=== PATIENT | male | born 1960 | race Caucasian/White ===

== ENCOUNTER → 2020-10-07 13:37 | Outpatient (CLI) | payer OTHER, SELFPAY ==
--- NOTE | 2020-10-07 | DI.RAD.S_ITS ---
PROCEDURE: XR CHEST 2V INDICATIONS: pain TECHNIQUE: 2 views of the chest were acquired. COMPARISON: [facility], , CHEST 2 VIEW, 12/19/2006, 17:09. FINDINGS: Surgical changes and devices: None. Lungs and pleura: Lungs are mildly abnormal, with a mild alveolar edema pattern through the lower lungs. However, this is in the setting of relatively large body habitus and reduced inspiration. Atelectasis may explain this appearance rather than pneumonia.. No pleural effusions or pneumothorax. Mediastinum: Mediastinal contours are normal. Heart size is normal. Bones and chest wall: No suspicious bony abnormalities. Soft tissues appear unremarkable. IMPRESSION: Prominently reduced inspiratory volume, crowding of the bronchovascular markings at each lung base. Atelectasis versus mild or early pneumonia appears present. Dictated by: Tyson Galvin M.D. on 10/07/2020 at 16:13 Approved by: Tyson Galvin M.D. on 10/07/2020 at 16:14
--- NOTE | 2020-10-07 | DI.RAD.S_ITS ---
PROCEDURE: XR SHOULDER RT MIN 2V INDICATIONS: RT SHOULDER PAIN TECHNIQUE: 3 views of the shoulder were acquired. COMPARISON: [facility], , XR CHEST 2V, 10/07/2020, 13:41. [facility], , CHEST 2 VIEW, 12/19/2006, 17:09. FINDINGS: Bones: No fractures or dislocations. No suspicious bony lesions. Visualized ribs appear intact. Moderate osteoarthritis at the AC joint. Soft tissues: No suspicious soft tissue calcifications. IMPRESSION: No fracture found, no dislocation seen. 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 Dictated by: Tyson Galvin M.D. on 10/07/2020 at 16:14 Approved by: Tyson Galvin M.D. on 10/07/2020 at 16:15
== END ==
PROVIDERS: PCP Student in an Organized Health Care Education/Training Program; Referring Provider Student in an Organized Health Care Education/Training Program; Visit Provider Student in an Organized Health Care Education/Training Program
DX: M25.511 Pain in right shoulder (principal); R07.9 Chest pain, unspecified; M19.011 Primary osteoarthritis, right shoulder
CPT/HCPCS: 71046; 73030